=== PATIENT | male | born 1980 | race Caucasian/White ===

== ENCOUNTER 2016-10-18 15:41 | Inpatient (IN) | payer OTHER, MEDICAID ==
[~2016-10-18] VITALS: Ht 149.9 cm; Wt 41.7 kg
[2016-10-18] VITALS (10 sets, daily range): BP systolic 111–147; BP diastolic 68–89; PULSE 92–126; RESP 13–24; TEMP 97.1–98.9; O2SAT 98–100
[~2016-10-18 15:41] MED LIST: CAT.1 PO; CLONIDINE; COGENTIN; Cogentin PO; DEPAKOTE; DIVA500T7 PO; DOCU-19 PO; MULT-518 PO; OLAN2.5T3 PO; OLAN20TA3 PO; OLAN5TAB3 PO; QUET300T2 PO; RESPERDAL; RISP0.5T20 PO; ZYPREXA
[2016-10-18] MEDS ORDERED: ALBUTEROL SULFATE 0.083% 2.5 MG/3 ML VIAL.NEB INH ONE ×2 (15:57→16:00)
[2016-10-18] MEDS ORDERED: ETOMIDATE 20 MG/ 10 ML VIAL (AMIDATE) IVP ONE ×2 (17:00→18:15)
[2016-10-18] MEDS ORDERED: PROPOFOL DRIP 100 ML IV ONE ×3 (17:13→20:57)
[2016-10-18] MEDS ORDERED: NACL 0.9% 1,000 ML IV ONE (17:45)
[2016-10-18] MEDS ORDERED: LEVOFLOXACIN 500 MG/D5W 100 ML IV ONE (17:45)
[2016-10-18 17:55] LABS: BASOPHILS # (AUTO) 0.1 K/uL (0.0-0.2); BASOPHILS % (AUTO) 1.3 % (0.0-2.0); EOSINOPHILS % (AUTO) 0.5 % (0.0-4.0); HEMATOCRIT 36.7 % (36-54); HEMOGLOBIN 13.1 g/dL (14.0-18.0); LYMPHOCYTES # (AUTO) 0.8 K/uL (1.0-5.5); LYMPHOCYTES % (AUTO) 11.8 % (20.5-51.5); MEAN CORPUSCULAR HEMOGLOBIN 34 pg (27-31); MEAN CORPUSCULAR HGB CONC 36 % (32-36); MEAN CORPUSCULAR VOLUME 95 fL (79.0-98.0); MONOCYTES % (AUTO) 15.3 % (1.7-9.3); NEUTROPHILS # (AUTO) 4.8 K/uL (1.8-7.7); NEUTROPHILS % (AUTO) 71.1 % (40.0-70.0); RED BLOOD CELL COUNT(AUTO) 3.87 MIL/uL (4.2-6.2); RED CELL DISTRIBUTION WIDTH 13.4 % (9.0-15.0); WHITE BLOOD COUNT (AUTO) 6.7 K/uL (4.8-10.8)
[2016-10-18 17:56] LABS: PROTHROMBIN TIME 10.5 SECS (9.5-12.5)
[2016-10-18 17:57] LABS: CALCIUM 8.9 mg/dL (8.4-11.0); CREATININE 0.98 mg/dL (0.55-1.30); POTASSIUM 3.1 mmol/L (3.5-5.1)
[2016-10-18 17:58] LABS: ABG TOTAL HEMOGLOBIN 12.8 G/dL (12.0-18.0); BLOOD GAS COHb% 0.3 % (0.5-1.5); BLOOD GAS HHB 0.6 % (0.0-6.0); BLOOD GAS PH 7.485 (7.350-7.450); BLOOD O2Hb% 98.3 % (94.0-97.0)
[2016-10-18] MEDS ORDERED: methylPREDNISolone SOD SUCC/PF 62.5 MG/ML VIAL IVP ONE (18:00)
[2016-10-18 18:03] LABS: ALBUMIN 3.6 g/dL (3.4-4.8); TOTAL BILIRUBIN 0.3 mg/dL (0.0-1.0); TOTAL PROTEIN, SERUM 7.3 g/dL (6.4-8.3)
[2016-10-18 18:11] LABS: PLATELET COUNT (AUTO) 77 K/uL (130-430)
[2016-10-18 19:58] LABS: BILIRUBIN,URINE NEGATIVE (NEGATIVE); BLOOD, URINE NEGATIVE (NEGATIVE); CLARITY/URINE CLEAR (CLEAR); COLOR,URINE YELLOW (YELLOW); GLUCOSE,URINE NEGATIVE (NEGATIVE); KETONES,URINE NEGATIVE (NEGATIVE); LEUKOCYTE ESTERASE ,URINE NEGATIVE (NEGATIVE); NITRITE, URINE NEGATIVE (NEGATIVE); PH,URINE 6.5 (5.0-8.0); PROTEIN URINE NEGATIVE (NEGATIVE)
[2016-10-18] MEDS ORDERED: LORazepam 2 MG/ML VIAL ONE (20:40)
[2016-10-18] MEDS ORDERED: LORazepam 2 MG/ML VIAL IVP PRN ×2 (21:00)
[2016-10-18] MEDS ORDERED: POTASSIUM CHLORIDE 40 MEQ, LIDOCAINE JECT 2% PF 100 MG 50 MG in NS 250 ML IV ONE (21:00)
[2016-10-18] MEDS ORDERED: KCL 20 mEq in 100 mL (PREMIX) 100 ML IV ONE (21:15)
[2016-10-18] MEDS ORDERED: DIVALPROEX SODIUM 500 MG TABLET( DEPAKOTE) PO ONE (21:45)
[2016-10-18] MEDS ORDERED: cloNIDine HCL 0.1 MG TABLET PO ONE (21:45)
[2016-10-18] MEDS ORDERED: QUEtiapine FUMARATE 100 MG TABLET PO ONE (21:45)
[2016-10-18] MEDS ORDERED: MULTIVITAMINS TAB 1 TABLET PO ONE (21:45)
[2016-10-18] MEDS: LR 1,000 ML IV SCH (22:14)
[2016-10-19] VITALS (28 sets, daily range): BP systolic 96–148; BP diastolic 45–97; PULSE 77–145; RESP 12–24; TEMP 96.6–98.3; O2SAT 96–100
[2016-10-19] MEDS: PROPOFOL DRIP 100 ML IV PRN ×2 (01:08→09:32)
[2016-10-19] MEDS: LR 1,000 ML IV SCH (06:34)
[2016-10-19 07:50] LABS: ALBUMIN 2.9 g/dL (3.4-4.8); CALCIUM 8.7 mg/dL (8.4-11.0); CREATININE 0.73 mg/dL (0.55-1.30); POTASSIUM 4.2 mmol/L (3.5-5.1); TOTAL BILIRUBIN 0.2 mg/dL (0.0-1.0); TOTAL PROTEIN, SERUM 6.4 g/dL (6.4-8.3)
[2016-10-19 08:01] LABS: BASOPHILS % (AUTO) 0.2 % (0.0-2.0); HEMATOCRIT 34.2 % (36-54); HEMOGLOBIN 11.5 g/dL (14.0-18.0); LYMPHOCYTES # (AUTO) 0.5 K/uL (1.0-5.5); LYMPHOCYTES % (AUTO) 6.5 % (20.5-51.5); MEAN CORPUSCULAR HEMOGLOBIN 32 pg (27-31); MEAN CORPUSCULAR HGB CONC 34 % (32-36); MEAN CORPUSCULAR VOLUME 96 fL (79.0-98.0); MONOCYTES # (AUTO) 0.9 K/uL (0.0-1.0); MONOCYTES % (AUTO) 11.2 % (1.7-9.3); NEUTROPHILS # (AUTO) 6.6 K/uL (1.8-7.7); PLATELET COUNT (AUTO) 72 K/uL (130-430); RED BLOOD CELL COUNT(AUTO) 3.56 MIL/uL (4.2-6.2); RED CELL DISTRIBUTION WIDTH 13.3 % (9.0-15.0)
[2016-10-19 08:30] LABS: ABG TOTAL HEMOGLOBIN 13.1 G/dL (12.0-18.0); BLOOD GAS BASE EXCESS 0.6 mmol/L (-3.0-3.0); BLOOD GAS COHb% 0.5 % (0.5-1.5); BLOOD GAS HHB 1.3 % (0.0-6.0); BLOOD GAS PH 7.471 (7.350-7.450); BLOOD O2Hb% 97.6 % (94.0-97.0)
[2016-10-19] MEDS ORDERED: DIVALPROEX SODIUM 500 MG TABLET( DEPAKOTE) PO SCH (09:00)
[2016-10-19] MEDS: QUEtiapine FUMARATE 100 MG TABLET PO SCH (10:32)
[2016-10-19] MEDS: cloNIDine HCL 0.1 MG TABLET PO SCH ×2 (10:33→21:23)
[2016-10-19] MEDS: MULTIVITAMINS TAB 1 TABLET PO SCH (10:33)
[2016-10-19 11:49] LABS: NEUTROPHILS % (AUTO) 82.1 % (40.0-70.0)
[2016-10-19] MEDS: methylPREDNISolone SOD SUCC/PF 62.5 MG/ML VIAL IVP SCH ×2 (12:00→21:23)
[2016-10-19] MEDS ORDERED: IPRATROPIUM BROM 0.5 MG/2.5 ML VIAL.NEB (ATROVENT) INH SCH (13:00)
[2016-10-19] MEDS ORDERED: LEVALBUTEROL HCL 0.63 MG/3 ML VIAL.NEB INH SCH (13:00)
[2016-10-19] MEDS: cefTRIAXone 1 GM IVPB PREMIX 50 ML IV SCH (13:10)
[2016-10-19] MEDS ORDERED: FLU VACC QS 2016-17(36MOS+)/PF 0.5 ML/SYR SYRINGE I.M. PRN (15:15)
[2016-10-19] MEDS ORDERED: IPRATROPIUM/ALBUTEROL SULFATE 3 ML AMPUL.NEB INH PRN (17:45)
[2016-10-19] MEDS ORDERED: VALPROATE SODIUM 500 MG in D5W 100 ML IV ONE (18:15)
[2016-10-19] MEDS: IPRATROPIUM/ALBUTEROL SULFATE 3 ML AMPUL.NEB INH SCH ×2 (19:00→23:28)
[2016-10-19] MEDS: VALPROATE SODIUM 500 MG in D5W 100 ML IV SCH (21:23)
[2016-10-20] VITALS (24 sets, daily range): BP systolic 95–166; BP diastolic 55–104; PULSE 76–144; RESP 18–30; TEMP 97.7–98.6; O2SAT 94–100
[2016-10-20] MEDS: IPRATROPIUM/ALBUTEROL SULFATE 3 ML AMPUL.NEB INH SCH ×2 (02:51→07:42)
[2016-10-20] MEDS: methylPREDNISolone SOD SUCC/PF 62.5 MG/ML VIAL IVP SCH ×3 (05:13→21:20)
[2016-10-20] MEDS: VALPROATE SODIUM 500 MG in D5W 100 ML IV SCH ×3 (05:15→21:21)
[2016-10-20 07:00] LABS: BASOPHILS % (AUTO) 0.3 % (0.0-2.0); HEMATOCRIT 34.8 % (36-54); LYMPHOCYTES # (AUTO) 0.4 K/uL (1.0-5.5); MEAN CORPUSCULAR HEMOGLOBIN 33 pg (27-31); MEAN CORPUSCULAR HGB CONC 34 % (32-36); MEAN CORPUSCULAR VOLUME 95 fL (79.0-98.0); MONOCYTES # (AUTO) 1.4 K/uL (0.0-1.0); MONOCYTES % (AUTO) 12.1 % (1.7-9.3); PLATELET COUNT (AUTO) 60 K/uL (130-430); RED BLOOD CELL COUNT(AUTO) 3.65 MIL/uL (4.2-6.2); RED CELL DISTRIBUTION WIDTH 13.9 % (9.0-15.0); WHITE BLOOD COUNT (AUTO) 11.8 K/uL (4.8-10.8)
[2016-10-20 07:15] LABS: POTASSIUM 3.5 mmol/L (3.5-5.1)
[2016-10-20] MEDS: D5LR 1,000 ML IV SCH ×3 (07:17→18:30)
[2016-10-20 08:06] LABS: NEUTROPHILS % (AUTO) 84.6 % (40.0-70.0)
[2016-10-20] MEDS: MULTIVITAMINS TAB 1 TABLET PO SCH (09:00)
[2016-10-20] MEDS: QUEtiapine FUMARATE 100 MG TABLET PO SCH (09:00)
[2016-10-20] MEDS: cloNIDine HCL 0.1 MG TABLET PO SCH (09:00)
[2016-10-20] MEDS ORDERED: cloNIDine HCL 0.1 MG/24 HR PATCH.TDWK TD ONE (11:45)
[2016-10-20] MEDS: IPRATROPIUM BROM 0.5 MG/2.5 ML VIAL.NEB (ATROVENT) INH SCH ×2 (14:15→19:45)
[2016-10-20] MEDS: cefTRIAXone 1 GM IVPB PREMIX 50 ML IV SCH (14:42)
[2016-10-20] MEDS ORDERED: *TPN PER PHARMACY XX PRN (18:00)
[2016-10-20] MEDS ORDERED: DEXTROSE 50% JECT 50 ML DISP.SYRIN IVP PRN (18:00)
[2016-10-20] MEDS: LORazepam 2 MG/ML VIAL IVP PRN ×2 (21:21→23:38)
[2016-10-20] MEDS: IPRATROPIUM BROM 0.5 MG/2.5 ML VIAL.NEB (ATROVENT) INH PRN (23:49)
[2016-10-21] VITALS (20 sets, daily range): BP systolic 113–150; BP diastolic 34–95; PULSE 81–129; RESP 13–30; TEMP 98–99.7; O2SAT 92–100; Ht 149.9 cm; Wt 41.7 kg
[2016-10-21] MEDS: IPRATROPIUM BROM 0.5 MG/2.5 ML VIAL.NEB (ATROVENT) INH SCH ×3 (01:17→19:56)
[2016-10-21] MEDS: VALPROATE SODIUM 500 MG in D5W 100 ML IV SCH ×3 (05:25→22:01)
[2016-10-21] MEDS: methylPREDNISolone SOD SUCC/PF 62.5 MG/ML VIAL IVP SCH ×3 (05:25→22:02)
[2016-10-21] MEDS: D5LR 1,000 ML IV SCH ×2 (06:25→22:01)
[2016-10-21 07:12] LABS: BASOPHILS # (AUTO) 0.1 K/uL (0.0-0.2); BASOPHILS % (AUTO) 0.6 % (0.0-2.0); HEMATOCRIT 35.9 % (36-54); HEMOGLOBIN 12.4 g/dL (14.0-18.0); LYMPHOCYTES # (AUTO) 0.5 K/uL (1.0-5.5); LYMPHOCYTES % (AUTO) 5.4 % (20.5-51.5); MEAN CORPUSCULAR HEMOGLOBIN 33 pg (27-31); MEAN CORPUSCULAR HGB CONC 35 % (32-36); MEAN CORPUSCULAR VOLUME 96 fL (79.0-98.0); MONOCYTES # (AUTO) 1.3 K/uL (0.0-1.0); MONOCYTES % (AUTO) 12.7 % (1.7-9.3); NEUTROPHILS # (AUTO) 8.1 K/uL (1.8-7.7); NEUTROPHILS % (AUTO) 81.3 % (40.0-70.0); PLATELET COUNT (AUTO) 62 K/uL (130-430); RED BLOOD CELL COUNT(AUTO) 3.75 MIL/uL (4.2-6.2); RED CELL DISTRIBUTION WIDTH 13.9 % (9.0-15.0)
[2016-10-21 07:41] LABS: CREATININE 0.7 mg/dL (0.55-1.30); PHOSPHORUS 3.2 mg/dL (2.7-4.5); POTASSIUM 3.6 mmol/L (3.5-5.1)
[2016-10-21 07:52] LABS: INR 0.9 (0.80-1.20); PROTHROMBIN TIME 10.3 SECS (9.5-12.5)
[2016-10-21] MEDS ORDERED: SIMETHICONE 40 MG/0.6 ML ML ONE (07:58)
[2016-10-21] MEDS ORDERED: fentaNYL CITRATE/PF 100 MCG/2 ML AMP ONE (08:00)
[2016-10-21] MEDS ORDERED: MIDAZOLAM HCL 5 MG/5 ML VIAL ONE (08:01)
[2016-10-21] MEDS: MULTIVITAMINS TAB 1 TABLET PO SCH (09:00)
[2016-10-21] MEDS: QUEtiapine FUMARATE 100 MG TABLET PO SCH (09:00)
[2016-10-21] MEDS: cefTRIAXone 1 GM IVPB PREMIX 50 ML IV SCH (12:19)
[2016-10-21] MEDS: SODIUM CHLORIDE IV SCH ×10 (14:20)
[2016-10-21] MEDS: K PHOS IV SCH ×10 (14:20)
[2016-10-21] MEDS: TPN CENTRAL IV SCH ×10 (14:20)
[2016-10-21] MEDS: POTASSIUM CHLORIDE IV SCH ×10 (14:20)
[2016-10-21] MEDS: [UNRECOGNIZED DRUG - OTHER] IV SCH ×10 (14:20)
[2016-10-21] MEDS: FAT EMULSIONS 250 ML IV SCH (14:21)
[2016-10-21] MEDS: LORazepam 2 MG/ML VIAL IVP PRN ×2 (17:01→22:02)
[2016-10-21] MEDS: INSULIN REGULAR, HUMAN 100 UNITS/ML, 10 ML VIAL (novoLIN R) SUBCUT PRN (17:08)
[2016-10-21] MEDS ORDERED: VALPROATE SODIUM 100 MG/ML VIAL (DEPACON) IV ONE (21:52)
[2016-10-22] MEDS: IPRATROPIUM BROM 0.5 MG/2.5 ML VIAL.NEB (ATROVENT) INH SCH ×4 (00:20→20:14)
[2016-10-22] MEDS: LORazepam 2 MG/ML VIAL IVP PRN ×2 (02:24→21:35)
[2016-10-22 03:43] VITALS: BP 111/65; PULSE 119; RESP 22; TEMP 98.4; O2SAT 94
[2016-10-22] MEDS: methylPREDNISolone SOD SUCC/PF 62.5 MG/ML VIAL IVP SCH ×3 (05:48→21:35)
[2016-10-22] MEDS: VALPROATE SODIUM 500 MG in D5W 100 ML IV SCH ×3 (05:53→22:26)
[2016-10-22] MEDS: INSULIN REGULAR, HUMAN 100 UNITS/ML, 10 ML VIAL (novoLIN R) SUBCUT PRN (06:15)
[2016-10-22 07:48] LABS: BASOPHILS # (AUTO) 0.1 K/uL (0.0-0.2); BASOPHILS % (AUTO) 0.8 % (0.0-2.0); CALCIUM 9.7 mg/dL (8.4-11.0); CREATININE 0.73 mg/dL (0.55-1.30); HEMATOCRIT 36.3 % (36-54); LYMPHOCYTES # (AUTO) 0.5 K/uL (1.0-5.5); LYMPHOCYTES % (AUTO) 5.6 % (20.5-51.5); MEAN CORPUSCULAR HEMOGLOBIN 34 pg (27-31); MEAN CORPUSCULAR HGB CONC 36 % (32-36); MEAN CORPUSCULAR VOLUME 94 fL (79.0-98.0); NEUTROPHILS # (AUTO) 7.3 K/uL (1.8-7.7); NEUTROPHILS % (AUTO) 82.6 % (40.0-70.0); PLATELET COUNT (AUTO) 84 K/uL (130-430); POTASSIUM 3.4 mmol/L (3.5-5.1); RED BLOOD CELL COUNT(AUTO) 3.87 MIL/uL (4.2-6.2); RED CELL DISTRIBUTION WIDTH 13.1 % (9.0-15.0); WHITE BLOOD COUNT (AUTO) 8.9 K/uL (4.8-10.8)
[2016-10-22 08:16] LABS: INR 0.9 (0.80-1.20); PROTHROMBIN TIME 10.2 SECS (9.5-12.5)
[2016-10-22 08:43] VITALS: BP 121/68; PULSE 120; RESP 20; TEMP 99.7; O2SAT 92
[2016-10-22] MEDS: MULTIVITAMINS TAB 1 TABLET PO SCH (09:00)
[2016-10-22] MEDS: QUEtiapine FUMARATE 100 MG TABLET PO SCH (09:00)
[2016-10-22] MEDS: cefTRIAXone 1 GM IVPB PREMIX 50 ML IV SCH (11:07)
[2016-10-22 12:22] VITALS: BP 134/87; PULSE 113; RESP 30; TEMP 97.8; O2SAT 94
[2016-10-22] MEDS: FAT EMULSIONS 250 ML IV SCH (13:15)
[2016-10-22] MEDS: K PHOS IV SCH ×10 (14:53)
[2016-10-22] MEDS: POTASSIUM CHLORIDE IV SCH ×10 (14:53)
[2016-10-22] MEDS: SODIUM CHLORIDE IV SCH ×10 (14:53)
[2016-10-22] MEDS: [UNRECOGNIZED DRUG - OTHER] IV SCH ×10 (14:53)
[2016-10-22] MEDS: TPN CENTRAL IV SCH ×10 (14:53)
[2016-10-22 16:33] VITALS: BP 101/69; PULSE 78; RESP 16; TEMP 99.6; O2SAT 92
[2016-10-22] MEDS ORDERED: POTASSIUM CHLORIDE 40 MEQ in D5W 250 ML IV ONE (17:30)
[2016-10-22] MEDS: D5LR 1,000 ML IV SCH ×3 (17:58→22:01)
[2016-10-22 20:00] VITALS: BP 149/85; PULSE 75; RESP 19; TEMP 98.8; O2SAT 92
[2016-10-22] MEDS ORDERED: VALPROATE SODIUM 100 MG/ML VIAL (DEPACON) IV ONE (22:13)
[2016-10-23] VITALS (7 sets, daily range): BP systolic 114–131; BP diastolic 57–92; PULSE 61–114; RESP 18–24; TEMP 98.4–99.9; O2SAT 90–98
[2016-10-23] MEDS: IPRATROPIUM BROM 0.5 MG/2.5 ML VIAL.NEB (ATROVENT) INH SCH ×4 (01:31→19:40)
[2016-10-23] MEDS: LORazepam 2 MG/ML VIAL IVP PRN ×2 (01:46→17:39)
[2016-10-23] MEDS ORDERED: ACETYLCYSTEINE 20% 4 ML VIAL (RT) INH ONE (02:30)
[2016-10-23] MEDS: methylPREDNISolone SOD SUCC/PF 62.5 MG/ML VIAL IVP SCH ×3 (05:41→22:27)
[2016-10-23] MEDS: VALPROATE SODIUM 500 MG in D5W 100 ML IV SCH ×3 (05:42→22:25)
[2016-10-23 06:52] LABS: ABG TOTAL HEMOGLOBIN 12.8 G/dL (12.0-18.0); BLOOD GAS BASE EXCESS 3.4 mmol/L (-3.0-3.0); BLOOD GAS COHb% 0.3 % (0.5-1.5); BLOOD GAS PH 7.484 (7.350-7.450); BLOOD O2Hb% 94.3 % (94.0-97.0)
[2016-10-23] MEDS ORDERED: ACETYLCYSTEINE 20% 4 ML VIAL (RT) INH SCH (07:00)
[2016-10-23 07:23] LABS: HEMATOCRIT 35.7 % (36-54); HEMOGLOBIN 12.6 g/dL (14.0-18.0); MEAN CORPUSCULAR HEMOGLOBIN 33 pg (27-31); MEAN CORPUSCULAR HGB CONC 35 % (32-36); MEAN CORPUSCULAR VOLUME 94 fL (79.0-98.0); PLATELET COUNT (AUTO) 95 K/uL (130-430); RED BLOOD CELL COUNT(AUTO) 3.78 MIL/uL (4.2-6.2); RED CELL DISTRIBUTION WIDTH 13.1 % (9.0-15.0); WHITE BLOOD COUNT (AUTO) 9.7 K/uL (4.8-10.8)
[2016-10-23 07:51] LABS: ALBUMIN 2.2 g/dL (3.4-4.8); CALCIUM 8.9 mg/dL (8.4-11.0); CREATININE 0.65 mg/dL (0.55-1.30); PHOSPHORUS 3.2 mg/dL (2.7-4.5); POTASSIUM 3.7 mmol/L (3.5-5.1); TOTAL BILIRUBIN 0.2 mg/dL (0.0-1.0); TOTAL PROTEIN, SERUM 6.2 g/dL (6.4-8.3)
[2016-10-23 08:11] LABS: BAND % (MANUAL) 14 % (0-6); BASOPHILS % (MANUAL) 0 % (0-2); EOSINOPHILS % (MANUAL) 0 % (0-7); LYMPHOCYTES % (MANUAL) 7 % (20-46); METAMYELOCYTES % 2 % (0-0); MONOCYTES % (MANUAL) 14 % (0-11)
[2016-10-23] MEDS: MULTIVITAMINS TAB 1 TABLET PO SCH (08:52)
[2016-10-23] MEDS: QUEtiapine FUMARATE 100 MG TABLET PO SCH (08:52)
[2016-10-23] MEDS: ACETYLCYSTEINE 20% 4 ML VIAL (RT) INH SCH ×3 (11:00→19:41)
[2016-10-23] MEDS: cefTRIAXone 1 GM IVPB PREMIX 50 ML IV SCH (11:29)
[2016-10-23] MEDS: FAT EMULSIONS 250 ML IV SCH (12:49)
[2016-10-23 13:11] LABS: FOLATE (FOLIC ACID) 15.5 ng/mL (>3.0)
[2016-10-23] MEDS: IPRATROPIUM BROM 0.5 MG/2.5 ML VIAL.NEB (ATROVENT) INH PRN (13:14)
[2016-10-23] MEDS ORDERED: KETOROLAC TROMETHAMINE 15 MG VIAL IM PRN (13:15)
[2016-10-23] MEDS ORDERED: KETOROLAC TROMETHAMINE 15 MG VIAL IVP PRN (13:30)
[2016-10-23] MEDS: TPN CENTRAL IV SCH ×10 (17:33)
[2016-10-23] MEDS: POTASSIUM CHLORIDE IV SCH ×10 (17:33)
[2016-10-23] MEDS: [UNRECOGNIZED DRUG - OTHER] IV SCH ×10 (17:33)
[2016-10-23] MEDS: K PHOS IV SCH ×10 (17:33)
[2016-10-23] MEDS: SODIUM CHLORIDE IV SCH ×10 (17:33)
[2016-10-23] MEDS: D5LR 1,000 ML IV SCH (22:26)
[2016-10-24] VITALS (7 sets, daily range): BP systolic 110–143; BP diastolic 62–100; PULSE 59–126; RESP 18–22; TEMP 97.6–99.3; O2SAT 91–97
[2016-10-24] MEDS: methylPREDNISolone SOD SUCC/PF 62.5 MG/ML VIAL IVP SCH ×3 (06:11→21:17)
[2016-10-24] MEDS: VALPROATE SODIUM 500 MG in D5W 100 ML IV SCH ×3 (06:11→21:43)
[2016-10-24 07:40] LABS: BASOPHILS # (AUTO) 0.1 K/uL (0.0-0.2); BASOPHILS % (AUTO) 0.9 % (0.0-2.0); EOSINOPHILS # (AUTO) 0.1 K/uL (0.0-0.4); EOSINOPHILS % (AUTO) 0.7 % (0.0-4.0); HEMATOCRIT 34.1 % (36-54); HEMOGLOBIN 11.8 g/dL (14.0-18.0); LYMPHOCYTES # (AUTO) 0.8 K/uL (1.0-5.5); MEAN CORPUSCULAR HEMOGLOBIN 33 pg (27-31); MEAN CORPUSCULAR HGB CONC 35 % (32-36); MEAN CORPUSCULAR VOLUME 94 fL (79.0-98.0); MONOCYTES # (AUTO) 1.7 K/uL (0.0-1.0); MONOCYTES % (AUTO) 13.2 % (1.7-9.3); NEUTROPHILS # (AUTO) 9.9 K/uL (1.8-7.7); NEUTROPHILS % (AUTO) 79.2 % (40.0-70.0); PLATELET COUNT (AUTO) 106 K/uL (130-430); RED BLOOD CELL COUNT(AUTO) 3.61 MIL/uL (4.2-6.2); WHITE BLOOD COUNT (AUTO) 12.6 K/uL (4.8-10.8)
[2016-10-24] MEDS: IPRATROPIUM BROM 0.5 MG/2.5 ML VIAL.NEB (ATROVENT) INH SCH ×4 (07:55→20:00)
[2016-10-24] MEDS: ACETYLCYSTEINE 20% 4 ML VIAL (RT) INH SCH ×4 (07:55→20:02)
[2016-10-24 08:01] LABS: ALBUMIN 2.2 g/dL (3.4-4.8); CALCIUM 9.3 mg/dL (8.4-11.0); CREATININE 0.67 mg/dL (0.55-1.30); PHOSPHORUS 3.4 mg/dL (2.7-4.5); POTASSIUM 4.3 mmol/L (3.5-5.1); TOTAL BILIRUBIN 0.4 mg/dL (0.0-1.0); TOTAL PROTEIN, SERUM 6.1 g/dL (6.4-8.3)
[2016-10-24] MEDS: MULTIVITAMINS TAB 1 TABLET PO SCH (08:32)
[2016-10-24] MEDS: QUEtiapine FUMARATE 100 MG TABLET PO SCH (08:32)
[2016-10-24] MEDS: cefTRIAXone 1 GM IVPB PREMIX 50 ML IV SCH (12:01)
[2016-10-24] MEDS: FAT EMULSIONS 250 ML IV SCH (13:46)
[2016-10-24] MEDS: SODIUM CHLORIDE IV SCH ×10 (18:21)
[2016-10-24] MEDS: K PHOS IV SCH ×10 (18:21)
[2016-10-24] MEDS: [UNRECOGNIZED DRUG - OTHER] IV SCH ×10 (18:21)
[2016-10-24] MEDS: POTASSIUM CHLORIDE IV SCH ×10 (18:21)
[2016-10-24] MEDS: TPN CENTRAL IV SCH ×10 (18:21)
[2016-10-24] MEDS: D5LR 1,000 ML IV SCH (21:17)
[2016-10-24] MEDS ORDERED: VALPROATE SODIUM 100 MG/ML VIAL (DEPACON) IV ONE (21:41)
[2016-10-25 00:37] VITALS: BP 130/77; PULSE 90; RESP 17; TEMP 97.6; O2SAT 96
[2016-10-25] MEDS: VALPROATE SODIUM 500 MG in D5W 100 ML IV SCH ×3 (05:14→21:11)
[2016-10-25] MEDS: methylPREDNISolone SOD SUCC/PF 62.5 MG/ML VIAL IVP SCH ×3 (05:15→21:10)
[2016-10-25] MEDS ORDERED: VALPROATE SODIUM 100 MG/ML VIAL (DEPACON) IV ONE ×2 (05:15→20:38)
[2016-10-25 05:16] VITALS: BP 128/64; PULSE 80; RESP 18; TEMP 97.1; O2SAT 93
[2016-10-25 07:08] LABS: HEMATOCRIT 33.5 % (36-54); HEMOGLOBIN 11.6 g/dL (14.0-18.0); MEAN CORPUSCULAR HEMOGLOBIN 33 pg (27-31); MEAN CORPUSCULAR HGB CONC 35 % (32-36); MEAN CORPUSCULAR VOLUME 94 fL (79.0-98.0); PLATELET COUNT (AUTO) 102 K/uL (130-430); RED BLOOD CELL COUNT(AUTO) 3.55 MIL/uL (4.2-6.2); RED CELL DISTRIBUTION WIDTH 13.1 % (9.0-15.0); WHITE BLOOD COUNT (AUTO) 10.9 K/uL (4.8-10.8)
[2016-10-25] MEDS: IPRATROPIUM BROM 0.5 MG/2.5 ML VIAL.NEB (ATROVENT) INH SCH ×3 (07:18→15:25)
[2016-10-25] MEDS: ACETYLCYSTEINE 20% 4 ML VIAL (RT) INH SCH ×3 (07:18→15:25)
[2016-10-25 07:45] LABS: CALCIUM 8.5 mg/dL (8.4-11.0); CREATININE 0.51 mg/dL (0.55-1.30); PHOSPHORUS 4.1 mg/dL (2.7-4.5); POTASSIUM 4.1 mmol/L (3.5-5.1)
[2016-10-25] MEDS: MULTIVITAMINS TAB 1 TABLET PO SCH (09:00)
[2016-10-25] MEDS: QUEtiapine FUMARATE 100 MG TABLET PO SCH (09:00)
[2016-10-25 09:41] LABS: ATYPICAL LYMPHOCYTES % 0 % (0-0); BAND % (MANUAL) 5 % (0-6); BASOPHILS % (MANUAL) 0 % (0-2); EOSINOPHILS % (MANUAL) 0 % (0-7); LYMPHOCYTES % (MANUAL) 10 % (20-46); MONOCYTES % (MANUAL) 12 % (0-11)
[2016-10-25 12:29] VITALS: BP 123/74; PULSE 101; RESP 19; TEMP 98; O2SAT 94
[2016-10-25] MEDS: cefTRIAXone 1 GM IVPB PREMIX 50 ML IV SCH (13:47)
[2016-10-25] MEDS: FAT EMULSIONS 250 ML IV SCH (13:58)
[2016-10-25] MEDS ORDERED: MIDAZOLAM HCL 5 MG/5 ML VIAL ONE (15:00)
[2016-10-25] MEDS ORDERED: SEVOFLURANE 15 MIN GAS INH ONE (15:00)
[2016-10-25] MEDS ORDERED: PROPOFOL 200MG/ 20ML VIAL (DIPRIVAN) IV ONE (15:00)
[2016-10-25] MEDS ORDERED: ONDANSETRON HCL 4 MG/2 ML VIAL ONE (15:00)
[2016-10-25 15:24] VITALS: BP 98/61; PULSE 104; RESP 16; TEMP 98; O2SAT 97
[2016-10-25] MEDS: FLUCONAZOLE 200 mg/ NS 100 ML IV SCH (17:06)
[2016-10-25] MEDS ORDERED: PANTOPRAZOLE SODIUM 40 MG/VIAL (PROTONIX) IVP ONE (17:30)
[2016-10-25] MEDS: TPN CENTRAL IV SCH ×10 (18:55)
[2016-10-25] MEDS: SODIUM CHLORIDE IV SCH ×10 (18:55)
[2016-10-25] MEDS: POTASSIUM CHLORIDE IV SCH ×10 (18:55)
[2016-10-25] MEDS: K PHOS IV SCH ×10 (18:55)
[2016-10-25] MEDS: [UNRECOGNIZED DRUG - OTHER] IV SCH ×10 (18:55)
[2016-10-25 19:56] VITALS: BP 125/79; PULSE 97; RESP 18; TEMP 98.2; O2SAT 92
[2016-10-25] MEDS: D5LR 1,000 ML IV SCH (21:11)
[2016-10-25] MEDS: METOCLOPRAMIDE HCL 10 MG/2 ML VIAL IVP SCH (23:15)
[2016-10-25] MEDS: INSULIN REGULAR, HUMAN 100 UNITS/ML, 10 ML VIAL (novoLIN R) SUBCUT PRN (23:21)
[2016-10-25 23:56] VITALS: BP 125/79; PULSE 92; RESP 20; TEMP 98.5; O2SAT 95
[2016-10-26 04:31] VITALS: BP 124/63; PULSE 114; RESP 20; TEMP 99.1; O2SAT 91
[2016-10-26] MEDS: IPRATROPIUM BROM 0.5 MG/2.5 ML VIAL.NEB (ATROVENT) INH SCH ×5 (05:15→20:28)
[2016-10-26] MEDS ORDERED: VALPROATE SODIUM 100 MG/ML VIAL (DEPACON) IV ONE ×2 (05:16→22:39)
[2016-10-26] MEDS: ACETYLCYSTEINE 20% 4 ML VIAL (RT) INH SCH ×5 (05:16→20:28)
[2016-10-26] MEDS: D5LR 1,000 ML IV SCH ×2 (05:30→18:34)
[2016-10-26] MEDS: methylPREDNISolone SOD SUCC/PF 62.5 MG/ML VIAL IVP SCH (05:30)
[2016-10-26] MEDS: METOCLOPRAMIDE HCL 10 MG/2 ML VIAL IVP SCH ×4 (05:30→23:59)
[2016-10-26] MEDS: VALPROATE SODIUM 500 MG in D5W 100 ML IV SCH ×3 (05:34→22:48)
[2016-10-26 07:33] LABS: HEMATOCRIT 35.5 % (36-54); HEMOGLOBIN 12.3 g/dL (14.0-18.0); MEAN CORPUSCULAR HEMOGLOBIN 33 pg (27-31); MEAN CORPUSCULAR HGB CONC 35 % (32-36); MEAN CORPUSCULAR VOLUME 94 fL (79.0-98.0); PLATELET COUNT (AUTO) 98 K/uL (130-430); RED BLOOD CELL COUNT(AUTO) 3.78 MIL/uL (4.2-6.2); RED CELL DISTRIBUTION WIDTH 13.1 % (9.0-15.0); WHITE BLOOD COUNT (AUTO) 13.8 K/uL (4.8-10.8)
[2016-10-26 07:38] LABS: INR 1.1 (0.80-1.20); PROTHROMBIN TIME 11.5 SECS (9.5-12.5)
[2016-10-26 08:00] VITALS: BP 122/62; PULSE 88; RESP 20; TEMP 98.6; O2SAT 98
[2016-10-26 08:20] LABS: CALCIUM 8.7 mg/dL (8.4-11.0); CREATININE 0.74 mg/dL (0.55-1.30); PHOSPHORUS 4.4 mg/dL (2.7-4.5); POTASSIUM 3.4 mmol/L (3.5-5.1)
[2016-10-26 08:37] LABS: BAND % (MANUAL) 21 % (0-6); BASOPHILS % (MANUAL) 0 % (0-2); BLASTS, MANUAL % 0 % (0-0); EOSINOPHILS % (MANUAL) 0 % (0-7); LYMPHOCYTES % (MANUAL) 7 % (20-46); METAMYELOCYTES % 8 % (0-0); MONOCYTES % (MANUAL) 13 % (0-11); MYELOCYTES % 1 % (0-0); PROMYELOCYTES % 0 % (0-0)
[2016-10-26] MEDS: MULTIVITAMINS TAB 1 TABLET PO SCH (08:58)
[2016-10-26] MEDS: PANTOPRAZOLE SODIUM 40 MG/VIAL (PROTONIX) IVP SCH (08:58)
[2016-10-26] MEDS: QUEtiapine FUMARATE 100 MG TABLET PO SCH (08:58)
[2016-10-26 12:00] VITALS: BP 102/62; PULSE 115; RESP 22; TEMP 98.6; O2SAT 93
[2016-10-26] MEDS: FAT EMULSIONS 250 ML IV SCH ×2 (12:30→21:57)
[2016-10-26] MEDS: FLUCONAZOLE 200 mg/ NS 100 ML IV SCH ×2 (15:00→18:09)
[2016-10-26 17:27] VITALS: BP 104/64; PULSE 107; RESP 18; TEMP 98; O2SAT 93
[2016-10-26] MEDS: PIPERACILLIN/TAZO 2.25G/DEX-IS 50 ML IV SCH (18:34)
[2016-10-26 19:37] VITALS: BP 112/74; PULSE 102; RESP 18; TEMP 97.6; O2SAT 93
[2016-10-26 19:39] VITALS: BP 112/74; PULSE 102; RESP 18; TEMP 97.6; O2SAT 93
[2016-10-26] MEDS: SODIUM CHLORIDE IV SCH ×20 (20:00→21:56)
[2016-10-26] MEDS: K PHOS IV SCH ×20 (20:00→21:56)
[2016-10-26] MEDS: POTASSIUM CHLORIDE IV SCH ×20 (20:00→21:56)
[2016-10-26] MEDS: [UNRECOGNIZED DRUG - OTHER] IV SCH ×20 (20:00→21:56)
[2016-10-26] MEDS: TPN CENTRAL IV SCH ×20 (20:00→21:56)
[2016-10-26] MEDS: LACTOBACILLUS RHAMNOSUS GG 1 CAP CAPSULE PO SCH (20:36)
[2016-10-27] VITALS (8 sets, daily range): BP systolic 111–136; BP diastolic 68–86; PULSE 71–116; RESP 17–22; TEMP 97–100.1; O2SAT 92–100
[2016-10-27] MEDS: METOCLOPRAMIDE HCL 10 MG/2 ML VIAL IVP SCH ×3 (05:27→17:43)
[2016-10-27] MEDS: VALPROATE SODIUM 500 MG in D5W 100 ML IV SCH ×3 (05:28→21:51)
[2016-10-27] MEDS: PIPERACILLIN/TAZO 2.25G/DEX-IS 50 ML IV SCH ×4 (05:28→17:43)
[2016-10-27] MEDS: D5LR 1,000 ML IV SCH ×2 (06:00→13:55)
[2016-10-27 06:48] LABS: ALBUMIN 1.9 g/dL (3.4-4.8); CREATININE 0.87 mg/dL (0.55-1.30); PHOSPHORUS 2.8 mg/dL (2.7-4.5); POTASSIUM 3.6 mmol/L (3.5-5.1); TOTAL BILIRUBIN 0.4 mg/dL (0.0-1.0)
[2016-10-27 07:03] LABS: HEMATOCRIT 31.5 % (36-54); HEMOGLOBIN 11.3 g/dL (14.0-18.0); MEAN CORPUSCULAR HEMOGLOBIN 34 pg (27-31); MEAN CORPUSCULAR HGB CONC 36 % (32-36); MEAN CORPUSCULAR VOLUME 93 fL (79.0-98.0); PLATELET COUNT (AUTO) 93 K/uL (130-430); RED BLOOD CELL COUNT(AUTO) 3.37 MIL/uL (4.2-6.2); RED CELL DISTRIBUTION WIDTH 13.1 % (9.0-15.0); WHITE BLOOD COUNT (AUTO) 11.5 K/uL (4.8-10.8)
[2016-10-27 08:12] LABS: ATYPICAL LYMPHOCYTES % 3 % (0-0); BAND % (MANUAL) 16 % (0-6); BASOPHILS % (MANUAL) 0 % (0-2); BLASTS, MANUAL % 0 % (0-0); EOSINOPHILS % (MANUAL) 0 % (0-7); LYMPHOCYTES % (MANUAL) 17 % (20-46); METAMYELOCYTES % 5 % (0-0); MONOCYTES % (MANUAL) 12 % (0-11); MYELOCYTES % 8 % (0-0); PROMYELOCYTES % 1 % (0-0)
[2016-10-27] MEDS: MULTIVITAMINS TAB 1 TABLET PO SCH (09:00)
[2016-10-27] MEDS ORDERED: cloNIDine HCL 0.1 MG/24 HR PATCH.TDWK TD SCH (09:00)
[2016-10-27] MEDS: QUEtiapine FUMARATE 100 MG TABLET PO SCH (09:00)
[2016-10-27] MEDS: LACTOBACILLUS RHAMNOSUS GG 1 CAP CAPSULE PO SCH ×2 (09:00→21:00)
[2016-10-27] MEDS: PANTOPRAZOLE SODIUM 40 MG/VIAL (PROTONIX) IVP SCH (09:28)
[2016-10-27] MEDS: methylPREDNISolone SOD SUCC/PF 62.5 MG/ML VIAL IVP SCH (09:28)
[2016-10-27] MEDS: IPRATROPIUM BROM 0.5 MG/2.5 ML VIAL.NEB (ATROVENT) INH SCH ×3 (09:30→19:44)
[2016-10-27] MEDS: ACETYLCYSTEINE 20% 4 ML VIAL (RT) INH SCH ×4 (09:30→19:44)
[2016-10-27] MEDS: FLUCONAZOLE 200 mg/ NS 100 ML IV SCH (15:29)
[2016-10-27] MEDS: SODIUM CHLORIDE IV SCH ×10 (21:52)
[2016-10-27] MEDS: POTASSIUM CHLORIDE IV SCH ×10 (21:52)
[2016-10-27] MEDS: K PHOS IV SCH ×10 (21:52)
[2016-10-27] MEDS: [UNRECOGNIZED DRUG - OTHER] IV SCH ×10 (21:52)
[2016-10-27] MEDS: FAT EMULSIONS 250 ML IV SCH (21:52)
[2016-10-27] MEDS: TPN CENTRAL IV SCH ×10 (21:52)
[2016-10-28] MEDS: METOCLOPRAMIDE HCL 10 MG/2 ML VIAL IVP SCH ×4 (00:38→17:17)
[2016-10-28] MEDS: PIPERACILLIN/TAZO 2.25G/DEX-IS 50 ML IV SCH ×4 (00:39→17:17)
[2016-10-28 03:55] VITALS: BP 130/71; PULSE 78; RESP 22; TEMP 99.2; O2SAT 95
[2016-10-28 03:58] VITALS: BP 110/63; PULSE 78; RESP 20; TEMP 98; O2SAT 91
[2016-10-28 07:02] LABS: CALCIUM 8.8 mg/dL (8.4-11.0); CREATININE 0.8 mg/dL (0.55-1.30); PHOSPHORUS 2.8 mg/dL (2.7-4.5); POTASSIUM 3.5 mmol/L (3.5-5.1)
[2016-10-28] MEDS: VALPROATE SODIUM 500 MG in D5W 100 ML IV SCH ×3 (07:18→22:35)
[2016-10-28 07:52] VITALS: BP 134/94; PULSE 62; RESP 18; TEMP 98.6; O2SAT 97
[2016-10-28] MEDS: MULTIVITAMINS TAB 1 TABLET PO SCH (08:13)
[2016-10-28] MEDS: LACTOBACILLUS RHAMNOSUS GG 1 CAP CAPSULE PO SCH ×2 (08:13→21:00)
[2016-10-28] MEDS: QUEtiapine FUMARATE 100 MG TABLET PO SCH (08:13)
[2016-10-28] MEDS: D5LR 1,000 ML IV SCH (08:29)
[2016-10-28] MEDS: methylPREDNISolone SOD SUCC/PF 62.5 MG/ML VIAL IVP SCH (08:29)
[2016-10-28] MEDS: PANTOPRAZOLE SODIUM 40 MG/VIAL (PROTONIX) IVP SCH (08:29)
[2016-10-28] MEDS: INSULIN REGULAR, HUMAN 100 UNITS/ML, 10 ML VIAL (novoLIN R) SUBCUT PRN (11:47)
[2016-10-28 12:00] VITALS: BP 109/53; PULSE 77; RESP 21; TEMP 97.1; O2SAT 98
[2016-10-28] MEDS: FLUCONAZOLE 200 mg/ NS 100 ML IV SCH (14:21)
[2016-10-28] MEDS: ACETYLCYSTEINE 20% 4 ML VIAL (RT) INH SCH ×4 (15:45→19:40)
[2016-10-28] MEDS: IPRATROPIUM BROM 0.5 MG/2.5 ML VIAL.NEB (ATROVENT) INH SCH ×4 (15:45→19:40)
[2016-10-28 16:00] VITALS: BP 133/81; PULSE 86; RESP 21; TEMP 98; O2SAT 97
[2016-10-28 19:30] VITALS: BP 128/84; PULSE 84; RESP 20; TEMP 98.1; O2SAT 96
[2016-10-28] MEDS: LORazepam 2 MG/ML VIAL IVP PRN ×2 (19:52→20:40)
[2016-10-28] MEDS: TPN CENTRAL IV SCH ×10 (21:34)
[2016-10-28] MEDS: [UNRECOGNIZED DRUG - OTHER] IV SCH ×10 (21:34)
[2016-10-28] MEDS: K PHOS IV SCH ×10 (21:34)
[2016-10-28] MEDS: SODIUM CHLORIDE IV SCH ×10 (21:34)
[2016-10-28] MEDS: POTASSIUM CHLORIDE IV SCH ×10 (21:34)
[2016-10-28] MEDS: FAT EMULSIONS 250 ML IV SCH (22:00)
[2016-10-29] VITALS: BP 124/71; PULSE 71; RESP 17; TEMP 98.6; O2SAT 98
[2016-10-29] MEDS: PIPERACILLIN/TAZO 2.25G/DEX-IS 50 ML IV SCH ×4 (00:39→17:37)
[2016-10-29] MEDS: METOCLOPRAMIDE HCL 10 MG/2 ML VIAL IVP SCH ×4 (00:39→17:37)
[2016-10-29] MEDS: D5LR 1,000 ML IV SCH ×2 (03:34→08:00)
[2016-10-29 04:00] VITALS: BP 121/67; PULSE 68; RESP 17; TEMP 98.1; O2SAT 95
[2016-10-29] MEDS: VALPROATE SODIUM 500 MG in D5W 100 ML IV SCH ×3 (06:31→22:23)
[2016-10-29 06:57] LABS: CALCIUM 7.9 mg/dL (8.4-11.0); CREATININE 0.82 mg/dL (0.55-1.30); PHOSPHORUS 2.6 mg/dL (2.7-4.5); POTASSIUM 3.3 mmol/L (3.5-5.1)
[2016-10-29] MEDS: IPRATROPIUM BROM 0.5 MG/2.5 ML VIAL.NEB (ATROVENT) INH SCH ×4 (07:24→20:11)
[2016-10-29] MEDS: ACETYLCYSTEINE 20% 4 ML VIAL (RT) INH SCH ×4 (07:25→20:11)
[2016-10-29 08:00] VITALS: BP 114/74; PULSE 90; RESP 20; TEMP 98.2; O2SAT 97
[2016-10-29] MEDS: LACTOBACILLUS RHAMNOSUS GG 1 CAP CAPSULE PO SCH ×2 (09:00→21:00)
[2016-10-29] MEDS: MULTIVITAMINS TAB 1 TABLET PO SCH (09:00)
[2016-10-29] MEDS: QUEtiapine FUMARATE 100 MG TABLET PO SCH (09:00)
[2016-10-29] MEDS: methylPREDNISolone SOD SUCC/PF 62.5 MG/ML VIAL IVP SCH (09:30)
[2016-10-29] MEDS: PANTOPRAZOLE SODIUM 40 MG/VIAL (PROTONIX) IVP SCH (09:30)
[2016-10-29 12:00] VITALS: BP 108/64; PULSE 70; RESP 18; TEMP 98.7; O2SAT 98
[2016-10-29] MEDS: FLUCONAZOLE 200 mg/ NS 100 ML IV SCH (14:27)
[2016-10-29 16:00] VITALS: BP 101/61; PULSE 72; RESP 18; TEMP 98.2; O2SAT 93
[2016-10-29] MEDS: INSULIN REGULAR, HUMAN 100 UNITS/ML, 10 ML VIAL (novoLIN R) SUBCUT PRN (17:41)
[2016-10-29] MEDS ORDERED: POTASSIUM CHLORIDE IV SCH ×10 (21:00)
[2016-10-29] MEDS ORDERED: K PHOS IV SCH ×10 (21:00)
[2016-10-29] MEDS ORDERED: SODIUM CHLORIDE IV SCH ×10 (21:00)
[2016-10-29] MEDS ORDERED: TPN CENTRAL IV SCH ×10 (21:00)
[2016-10-29] MEDS ORDERED: [UNRECOGNIZED DRUG - OTHER] IV SCH ×10 (21:00)
[2016-10-29] MEDS: LORazepam 2 MG/ML VIAL IVP PRN (22:22)
[2016-10-29] MEDS: FAT EMULSIONS 250 ML IV SCH (22:27)
[2016-10-30] VITALS (9 sets, daily range): BP systolic 104–145; BP diastolic 60–100; PULSE 55–118; RESP 17–22; TEMP 97.6–99.7; O2SAT 93–99
[2016-10-30] MEDS: PIPERACILLIN/TAZO 2.25G/DEX-IS 50 ML IV SCH ×4 (00:26→17:58)
[2016-10-30] MEDS: METOCLOPRAMIDE HCL 10 MG/2 ML VIAL IVP SCH ×4 (00:26→17:58)
[2016-10-30] MEDS: D5LR 1,000 ML IV SCH ×3 (00:33→21:29)
[2016-10-30] MEDS: VALPROATE SODIUM 500 MG in D5W 100 ML IV SCH ×3 (06:17→21:29)
[2016-10-30 06:51] LABS: HEMATOCRIT 32.6 % (36-54); HEMOGLOBIN 11.4 g/dL (14.0-18.0); MEAN CORPUSCULAR HEMOGLOBIN 33 pg (27-31); MEAN CORPUSCULAR HGB CONC 35 % (32-36); MEAN CORPUSCULAR VOLUME 94 fL (79.0-98.0); PLATELET COUNT (AUTO) 158 K/uL (130-430); RED BLOOD CELL COUNT(AUTO) 3.46 MIL/uL (4.2-6.2); RED CELL DISTRIBUTION WIDTH 13.3 % (9.0-15.0); WHITE BLOOD COUNT (AUTO) 16.3 K/uL (4.8-10.8)
[2016-10-30 07:22] LABS: PHOSPHORUS 2.4 mg/dL (2.7-4.5); POTASSIUM 3.3 mmol/L (3.5-5.1)
[2016-10-30 07:45] LABS: CALCIUM 8.5 mg/dL (8.4-11.0); CREATININE 0.84 mg/dL (0.55-1.30)
[2016-10-30] MEDS: ACETYLCYSTEINE 20% 4 ML VIAL (RT) INH SCH ×4 (08:10→20:18)
[2016-10-30] MEDS: IPRATROPIUM BROM 0.5 MG/2.5 ML VIAL.NEB (ATROVENT) INH SCH ×4 (08:10→20:17)
[2016-10-30 08:15] LABS: BAND % (MANUAL) 6 % (0-6); BASOPHILS % (MANUAL) 0 % (0-2); EOSINOPHILS % (MANUAL) 0 % (0-7); LYMPHOCYTES % (MANUAL) 8 % (20-46); METAMYELOCYTES % 4 % (0-0); MONOCYTES % (MANUAL) 4 % (0-11); MYELOCYTES % 1 % (0-0)
[2016-10-30] MEDS: QUEtiapine FUMARATE 100 MG TABLET PO SCH (09:00)
[2016-10-30] MEDS: LACTOBACILLUS RHAMNOSUS GG 1 CAP CAPSULE PO SCH ×2 (09:00→21:00)
[2016-10-30] MEDS: MULTIVITAMINS TAB 1 TABLET PO SCH (09:00)
[2016-10-30] MEDS: PANTOPRAZOLE SODIUM 40 MG/VIAL (PROTONIX) IVP SCH (09:53)
[2016-10-30] MEDS: methylPREDNISolone SOD SUCC/PF 62.5 MG/ML VIAL IVP SCH (09:53)
[2016-10-30] MEDS ORDERED: COMMUNICATION ORDER XX ONE (12:15)
[2016-10-30] MEDS ORDERED: POTASSIUM CHLORIDE 40 MEQ in NS 250 ML IV ONE (13:00)
[2016-10-30] MEDS: FLUCONAZOLE 200 mg/ NS 100 ML IV SCH (15:43)
[2016-10-30 20:19] LABS: INR 1.1 (0.80-1.20); PROTHROMBIN TIME 12.1 SECS (9.5-12.5)
[2016-10-30] MEDS ORDERED: SODIUM CHLORIDE IV SCH ×10 (21:00)
[2016-10-30] MEDS ORDERED: POTASSIUM CHLORIDE IV SCH ×10 (21:00)
[2016-10-30] MEDS ORDERED: K PHOS IV SCH ×10 (21:00)
[2016-10-30] MEDS ORDERED: TPN CENTRAL IV SCH ×10 (21:00)
[2016-10-30] MEDS ORDERED: [UNRECOGNIZED DRUG - OTHER] IV SCH ×10 (21:00)
[2016-10-31] MEDS ORDERED: DEXTROSE 50% JECT 50 ML DISP.SYRIN ONE (01:51)
[2016-10-31] MEDS ORDERED: DEXTROSE 50% JECT 50 ML DISP.SYRIN IVP ONE (02:15)
[2016-10-31 04:00] VITALS: BP 121/69; PULSE 90; RESP 18; TEMP 97.9; O2SAT 96
[2016-10-31] MEDS: VALPROATE SODIUM 500 MG in D5W 100 ML IV SCH ×2 (05:44→14:07)
[2016-10-31] MEDS: PIPERACILLIN/TAZO 2.25G/DEX-IS 50 ML IV SCH ×4 (05:45→17:25)
[2016-10-31] MEDS: METOCLOPRAMIDE HCL 10 MG/2 ML VIAL IVP SCH ×4 (05:45→17:26)
[2016-10-31 07:12] LABS: HEMOGLOBIN 11.3 g/dL (14.0-18.0); MEAN CORPUSCULAR HEMOGLOBIN 33 pg (27-31); MEAN CORPUSCULAR HGB CONC 35 % (32-36); MEAN CORPUSCULAR VOLUME 93 fL (79.0-98.0); PLATELET COUNT (AUTO) 180 K/uL (130-430); RED BLOOD CELL COUNT(AUTO) 3.44 MIL/uL (4.2-6.2); RED CELL DISTRIBUTION WIDTH 13.4 % (9.0-15.0); WHITE BLOOD COUNT (AUTO) 25.6 K/uL (4.8-10.8)
[2016-10-31 07:17] LABS: CALCIUM 8.7 mg/dL (8.4-11.0); CREATININE 0.8 mg/dL (0.55-1.30); PHOSPHORUS 4.3 mg/dL (2.7-4.5); POTASSIUM 4.2 mmol/L (3.5-5.1)
[2016-10-31] MEDS: IPRATROPIUM BROM 0.5 MG/2.5 ML VIAL.NEB (ATROVENT) INH SCH ×4 (07:37→20:51)
[2016-10-31] MEDS: ACETYLCYSTEINE 20% 4 ML VIAL (RT) INH SCH ×4 (07:38→20:51)
[2016-10-31 08:00] VITALS: BP 123/63; PULSE 86; RESP 18; TEMP 98.5; O2SAT 93
[2016-10-31] MEDS: LACTOBACILLUS RHAMNOSUS GG 1 CAP CAPSULE PO SCH (08:56)
[2016-10-31] MEDS: QUEtiapine FUMARATE 100 MG TABLET PO SCH (08:56)
[2016-10-31] MEDS: MULTIVITAMINS TAB 1 TABLET PO SCH (08:57)
[2016-10-31] MEDS: PANTOPRAZOLE SODIUM 40 MG/VIAL (PROTONIX) IVP SCH (09:06)
[2016-10-31] MEDS: methylPREDNISolone SOD SUCC/PF 62.5 MG/ML VIAL IVP SCH (09:06)
[2016-10-31 10:03] LABS: ATYPICAL LYMPHOCYTES % 1 % (0-0); BAND % (MANUAL) 11 % (0-6); LYMPHOCYTES % (MANUAL) 9 % (20-46)
[2016-10-31 10:04] LABS: BASOPHILS % (MANUAL) 0 % (0-2); EOSINOPHILS % (MANUAL) 0 % (0-7); MONOCYTES % (MANUAL) 6 % (0-11)
[2016-10-31 12:14] VITALS: BP 109/73; PULSE 117; RESP 16; TEMP 98.1; O2SAT 91
[2016-10-31] MEDS: FLUCONAZOLE 200 mg/ NS 100 ML IV SCH (15:13)
[2016-10-31 16:11] VITALS: BP 112/74; PULSE 112; RESP 18; TEMP 98; O2SAT 93
[2016-10-31] MEDS: FAT EMULSIONS 250 ML IV SCH (17:03)
[2016-10-31] MEDS: D5LR 1,000 ML IV SCH (17:04)
[2016-10-31 20:00] VITALS: BP 119/83; PULSE 104; PULSE 92; RESP 20; RESP 22; TEMP 98.5; O2SAT 94
[2016-11-01] VITALS (8 sets, daily range): BP systolic 104–125; BP diastolic 51–90; PULSE 74–101; RESP 16–18; TEMP 98.2–98.9; O2SAT 92–99
[2016-11-01] MEDS ORDERED: VALPROATE SODIUM 100 MG/ML VIAL (DEPACON) IV ONE (00:07)
[2016-11-01] MEDS: VALPROATE SODIUM 500 MG in D5W 100 ML IV SCH (00:22)
[2016-11-01] MEDS: METOCLOPRAMIDE HCL 10 MG/2 ML VIAL IVP SCH ×4 (00:42→17:20)
[2016-11-01] MEDS: PIPERACILLIN/TAZO 2.25G/DEX-IS 50 ML IV SCH ×4 (02:37→17:21)
[2016-11-01] MEDS: D5LR 1,000 ML IV SCH (06:24)
[2016-11-01] MEDS ORDERED: VALPROATE SODIUM 500 MG in D5W 100 ML IV ONE ×2 (07:30→15:30)
[2016-11-01] MEDS: ACETYLCYSTEINE 20% 4 ML VIAL (RT) INH SCH ×3 (07:59→16:26)
[2016-11-01] MEDS: IPRATROPIUM BROM 0.5 MG/2.5 ML VIAL.NEB (ATROVENT) INH SCH ×3 (07:59→16:25)
[2016-11-01] MEDS: QUEtiapine FUMARATE 100 MG TABLET PO SCH (09:00)
[2016-11-01] MEDS: MULTIVITAMINS TAB 1 TABLET PO SCH (09:00)
[2016-11-01 09:39] LABS: CALCIUM 8.1 mg/dL (8.4-11.0); CREATININE 0.99 mg/dL (0.55-1.30); PHOSPHORUS 3.6 mg/dL (2.7-4.5); POTASSIUM 3.4 mmol/L (3.5-5.1)
[2016-11-01 09:46] LABS: HEMATOCRIT 30.9 % (36-54); HEMOGLOBIN 10.4 g/dL (14.0-18.0); MEAN CORPUSCULAR HEMOGLOBIN 32 pg (27-31); MEAN CORPUSCULAR HGB CONC 34 % (32-36); MEAN CORPUSCULAR VOLUME 94 fL (79.0-98.0); PLATELET COUNT (AUTO) 225 K/uL (130-430); RED BLOOD CELL COUNT(AUTO) 3.28 MIL/uL (4.2-6.2); RED CELL DISTRIBUTION WIDTH 13.2 % (9.0-15.0)
[2016-11-01 09:55] LABS: WHITE BLOOD COUNT (AUTO) 17.2 K/uL (4.8-10.8)
[2016-11-01] MEDS: PANTOPRAZOLE SODIUM 40 MG/VIAL (PROTONIX) IVP SCH (12:14)
[2016-11-01 12:38] LABS: ATYPICAL LYMPHOCYTES % 0 % (0-0); BAND % (MANUAL) 4 % (0-6); BASOPHILS % (MANUAL) 0 % (0-2); EOSINOPHILS % (MANUAL) 0 % (0-7); LYMPHOCYTES % (MANUAL) 15 % (20-46); MONOCYTES % (MANUAL) 12 % (0-11)
[2016-11-01] MEDS ORDERED: VALPROATE SODIUM 500 MG in D5W 100 ML IV SCH (14:00)
[2016-11-01] MEDS ORDERED: FLUCONAZOLE 200 mg/ NS 100 ML IV SCH (15:00)
[2016-11-01] MEDS ORDERED: POTASSIUM CHLORIDE 40 MEQ, LIDOCAINE JECT 2% PF 100 MG 50 MG in NS 250 ML IV ONE (15:00)
[2016-11-01] MEDS ORDERED: MENTHOL/ZINC OXIDE 113 GM OINT. TP PRN (18:00)
[2016-11-01] MEDS ORDERED: MENTHOL/ZINC OXIDE 113 GM OINT. TP SCH (21:00)
== END 2016-11-01 19:50 | DRG 208 ==
LOC: SED 15:41 → SIC 17:42 → STU 10-21 20:23 → SMU 10-30 22:36
PROVIDERS: ADMIT Internal Medicine; ATTEND Internal Medicine
PROC: 0BH17EZ Insertion of Endotracheal Airway into Trachea, Via Natural or Artificial Opening (ICD-10-PCS; principal; 2016-10-18)
PROC: 5A1935Z Respiratory Ventilation, Less than 24 Consecutive Hours (ICD-10-PCS; 2016-10-18)
PROC: 0DB98ZX Excision of Duodenum, Via Natural or Artificial Opening Endoscopic, Diagnostic (ICD-10-PCS; 2016-10-25)
PROC: 0DB58ZX Excision of Esophagus, Via Natural or Artificial Opening Endoscopic, Diagnostic (ICD-10-PCS; 2016-10-25)
PROC: 0DB68ZX Excision of Stomach, Via Natural or Artificial Opening Endoscopic, Diagnostic (ICD-10-PCS; 2016-10-25)
PROC: 02HV33Z Insertion of Infusion Device into Superior Vena Cava, Percutaneous Approach (ICD-10-PCS; 2016-11-01)
PROC: B548ZZA Ultrasonography of Superior Vena Cava, Guidance (ICD-10-PCS; 2016-11-01)
DX: J69.0 Pneumonitis due to inhalation of food and vomit (principal); J96.00 Acute respiratory failure, unspecified whether with hypoxia or hypercapnia; E43 Unspecified severe protein-calorie malnutrition; Z68.1 Body mass index [BMI] 19.9 or less, adult; D69.6 Thrombocytopenia, unspecified; K22.0 Achalasia of cardia; R13.10 Dysphagia, unspecified; T18.198A Other foreign object in esophagus causing other injury, initial encounter; F79 Unspecified intellectual disabilities; G40.909 Epilepsy, unspecified, not intractable, without status epilepticus; D64.9 Anemia, unspecified; F32.9 Major depressive disorder, single episode, unspecified; I10 Essential (primary) hypertension; J40 Bronchitis, not specified as acute or chronic; E87.6 Hypokalemia; K20.9 Esophagitis, unspecified; I34.0 Nonrheumatic mitral (valve) insufficiency; K22.70 Barrett's esophagus without dysplasia; Z22.322 Carrier or suspected carrier of Methicillin resistant Staphylococcus aureus; Z79.899 Other long term (current) drug therapy
CPT/HCPCS: 36415; 36600; 70360-TC; 71010; 71020-TC; 71250-TC; 76700-TC; 80048; 80053; 80061; 80164-TC; 81003; 82607; 82728; 82746; 82803-TC; 82962; 83605; 83735-TC; 83880; 84100-TC; 84484; 85007; 85025; 85027; 85610-TC; 85730-TC; 87040-TC; 87070-TC; 87081; 87086; 87205-TC; 87230-TC; 88305; 88312; 88313; 93005; 93306; 94002; 94003; 94640; 94668; 94760; 96365; 96375; 99291; C1751; C1769; C9113; J0696; J1450; J1815; J1885; J1956; J2060; J2250; J2405; J2543; J2704; J2765; J2930; J3010; J3475; J3480; J3490; J7030; J7050; J7060; J7120; J7131; Q2037

== ENCOUNTER 2016-11-13 09:03 | Outpatient (CLI) | payer OTHER, MEDICAID ==
[2016-10-21 13:53] VITALS: BMI 18.6
[2016-11-13] MEDS ORDERED: BARIUM SULFATE 135 ML SUSP.RECON (E-Z-HD) PO ONE (09:52)
== END 2016-11-13 18:09 | disposition home or self-care (01) ==
LOC: SRD 09:03
PROVIDERS: ATTEND Family Medicine
DX: J18.9 Pneumonia, unspecified organism (principal)
CPT/HCPCS: 74230; 92611-GN

== ENCOUNTER 2019-07-06 16:10 | Emergency (ER) | payer MEDICAID, OTHER ==
[~2019-07-06] VITALS: Ht 147.3 cm; Wt 45.4 kg
[~2019-07-06 16:10] MED LIST changes: +BACTROBAN NS; +CLAR500T PO; -CLONIDINE; +CLONIDINE HCL 0.1 MG; -COGENTIN; -Cogentin PO; -DEPAKOTE; +DIVA-74 PO; -DIVA500T7 PO; +DIVALPROEX SODIUM 500 MG; -DOCU-19 PO; -OLAN20TA3 PO; -OLAN5TAB3 PO; +OLANZAPINE 20 MG; -RESPERDAL; -RISP0.5T20 PO; +RISP0.5T5 PO; +RISP1TAB7 PO; -ZYPREXA
[2019-07-06 17:07] VITALS: BP_SYST 143
[2019-07-06] MEDS ORDERED: IPRATROPIUM/ALBUTEROL SULFATE 3 ML AMPUL.NEB (DUONEB) INH ONE (20:00)
[2019-07-06 21:18] VITALS: BP_SYST 132
== END 2019-07-06 21:18 | disposition home or self-care (01) ==
LOC: SED 16:10
DX: R05 Cough (principal); R03.0 Elevated blood-pressure reading, without diagnosis of hypertension; Z79.899 Other long term (current) drug therapy
CPT/HCPCS: 71045; 94640; 99283; J7620

== ENCOUNTER 2022-01-25 17:30 | Emergency (ER) | payer OTHER, MEDICAID ==
[~2022-01-25] VITALS: Ht 152.4 cm; Wt 58.1 kg
--- NOTE | 2022-01-25 17:51 | NUR ---
Patient to ER bed 06 to gown for evaluation. Side rails up.
[2022-01-25 17:53] VITALS: BP_SYST 133
--- NOTE | 2022-01-25 17:58 | NUR ---
First contact with pt. Pt has cc of cough and wheezing for the past few days. According to caregiver pt has hx of seizure and asthma. Pt currently sitting in gurney and oxygen saturation is at 98% on RA. Pt is developmentally disabled, alert and responding appropriately to stimuli. Awaiting reevaluation and further orders.
[2022-01-25 18:52] LABS: BASOPHILS # (AUTO) 0.1 K/uL (0.0-0.2); BASOPHILS % (AUTO) 1.3 % (0.0-2.0); EOSINOPHILS # (AUTO) 0.1 K/uL (0.0-0.4); EOSINOPHILS % (AUTO) 0.7 % (0.0-4.0); HEMATOCRIT 39.1 % (36-54); HEMOGLOBIN 13.2 g/dL (14.0-18.0); LYMPHOCYTES # (AUTO) 1.3 K/uL (1.0-5.5); LYMPHOCYTES % (AUTO) 13.8 % (20.5-51.5); MEAN CORPUSCULAR HEMOGLOBIN 31 pg (27-31); MEAN CORPUSCULAR HGB CONC 34 % (32-36); MEAN CORPUSCULAR VOLUME 91 fL (79.0-98.0); MONOCYTES # (AUTO) 1.3 K/uL (0.0-1.0); NEUTROPHILS # (AUTO) 6.5 K/uL (1.8-7.7); NEUTROPHILS % (AUTO) 70.2 % (40.0-70.0); PLATELET COUNT (AUTO) 130 K/uL (130-430); WHITE BLOOD COUNT (AUTO) 9.3 K/uL (4.8-10.8)
[2022-01-25 18:55] LABS: ANION GAP 11 (5-15); CALCIUM 9.1 mg/dL (8.4-11.0); CHLORIDE 97 mmol/L (98-107); CREATININE 0.73 mg/dL (0.55-1.30); GLUCOSE 88 mg/dL (70-99); POTASSIUM 3.6 mmol/L (3.5-5.1); SODIUM SERUM 132 mmol/L (136-145); UREA NITROGEN, BLOOD 11 mg/dL (8-21)
[2022-01-25 18:59] LABS: GFR AFRICAN AMERICAN 154 mL/min (>90)
[2022-01-25 19:03] LABS: ALANINE AMINOTRANSFERASE 13 U/L (12-78); ALBUMIN 3.6 g/dL (3.4-4.8); ASPARTATE AMINOTRANSFERASE 20 U/L (10-37); TOTAL BILIRUBIN 0.1 mg/dL (0.0-1.0)
--- NOTE | 2022-01-25 19:22 | NUR ---
Patient ambulated to restroom with assistance from RN.
[2022-01-25] MEDS ORDERED: ALBMDI INH (19:58)
[2022-01-25] MEDS ORDERED: IBUP-1969 PO (19:58)
--- NOTE | 2022-01-25 20:25 | NUR ---
Patient given written and verbal discharge instructions and verbalizes understanding. ER MD Elias discussed with patient/Caregiver the results and treatment provided. Patient in stable condition. ID arm band removed. Rx of Ibuprofen and Albuterol MDI . Patient educated on pain management and to follow up with PMD. Pain Scale 0/10. Opportunity for questions provided and answered. Medication side effect fact sheet provided.
[2022-01-25 20:39] VITALS: BP_SYST 133
== END 2022-01-25 20:25 | disposition home or self-care (01) ==
LOC: SED 17:30
DX: J40 Bronchitis, not specified as acute or chronic (principal); Z79.899 Other long term (current) drug therapy
CPT/HCPCS: 36415; 71045; 80053; 83880; 84484; 85025; 99284

== ENCOUNTER 2022-11-06 20:04 | Emergency (ER) | payer MEDICARE, MEDICAID ==
[~2022-11-06] VITALS: Ht 144.8 cm; Wt 40.8 kg
[~2022-11-06 20:04] MED LIST changes: +ALBMDI INH; +IBUP-1969 PO
[2022-11-06 20:18] VITALS: BP_SYST 150
[2022-11-06] MEDS ORDERED: IBUP-1969 PO (21:37)
[2022-11-06] MEDS ORDERED: IBUPROFEN 600 MG TABLET PO ONE (21:45)
[2022-11-06 22:10] VITALS: BP_SYST 150
== END 2022-11-06 22:10 | disposition home or self-care (01) ==
LOC: SED 20:04
DX: S43.402A Unspecified sprain of left shoulder joint, initial encounter (principal); Z79.899 Other long term (current) drug therapy; X58.XXXA Exposure to other specified factors, initial encounter; Y93.89 Activity, other specified; Y92.89 Other specified places as the place of occurrence of the external cause; Y99.8 Other external cause status
CPT/HCPCS: 73030; 99283

== ENCOUNTER 2022-11-25 13:02 | Emergency (ER) | payer MEDICARE, MEDICAID ==
[2022-11-25 13:11] VITALS: BP_SYST 99
--- NOTE | 2022-11-25 13:11 | NUR ---
Patient triaged and placed in waiting room. VSS and patient appears in no acute distress at this time. Accompanied by SELF, awaiting available bed, and MD notified of need for MSE.
--- NOTE | 2022-11-25 14:10 | NUR ---
ER DR. MARTINEZ EXAMINING PT IN TRIAGE
[2022-11-25 15:13] VITALS: BP_SYST 99
--- NOTE | 2022-11-25 15:13 | NUR ---
Patient given written and verbal discharge instructions and verbalizes understanding. ER MD discussed with patient the results and treatment provided. Patient in stable condition. ID arm band removed. NO Rx given. Patient educated on pain management and to follow up with PMD. Pain Scale 0/10. Opportunity for questions provided and answered. Medication side effect fact sheet provided.
== END 2022-11-25 15:13 | disposition home or self-care (01) ==
LOC: SED 13:02
DX: M25.512 Pain in left shoulder (principal); Z79.899 Other long term (current) drug therapy
CPT/HCPCS: 99281